=== PATIENT | female | born 1970 | race Caucasian/White ===

== ENCOUNTER 2019-05-15 09:47 | Day surgery (SDC) | payer OTHER ==
[~2019-05-15] VITALS: Ht 167.6 cm; Wt 69.4 kg
[2019-05-15] MEDS ORDERED: LACTATED RINGERS 1,000 ML IV SCH (10:01)
[2019-05-15 10:16] VITALS: BP 118/56
[2019-05-15] MEDS ORDERED: ESTR1TAB15 PO (10:24)
[2019-05-15] MEDS ORDERED: LEVO150T5 PO (10:24)
[2019-05-15 10:59] LABS: BASOPHILS # (AUTO) 0.03 x10^3/uL (0-0.1); BASOPHILS % (AUTO) 1 % (0-1); EOSINOPHILS # (AUTO) 0.16 x10^3/uL (0-0.4); EOSINOPHILS % (AUTO) 3 % (1-7); LYMPHOCYTES # (AUTO) 2.01 x10^3/uL (1-3.4); LYMPHOCYTES % (AUTO) 37 % (22-44); MD NO; MEAN CORPUSCULAR HEMOGLOBIN 35.7 pg (27.0-34.8); MEAN CORPUSCULAR VOLUME 105.1 fL (80-100); MEAN PLATELET VOLUME 9.3 fL (7.4-10.4); MONOCYTES # (AUTO) 0.44 x10^3/uL (0.2-0.8); MONOCYTES % (AUTO) 8 % (2-9); NEUTROPHILS # (AUTO) 2.85 x10^3/uL (1.8-6.8); NEUTROPHILS % (AUTO) 52 % (42-75); PLATELET COUNT 271 x10^3/uL (130-400); RED BLOOD COUNT 3.76 x10^6/uL (3.82-5.3); RED CELL DISTRIBUTION WIDTH 13.1 % (9.6-15.2)
[2019-05-15 11:07] LABS: ANION GAP 8 mmol/L (5-15); CALCIUM 8.7 mg/dL (8.5-10.1); CHLORIDE 109 mmol/L (98-107); CREATININE 0.81 mg/dL (0.55-1.02)
[2019-05-15 11:18] LABS: HCG UR SG 1.016 (1.003-1.030)
[2019-05-15] MEDS ORDERED: SCOPOLAMINE PATCH, 1.5MG PATCH.TD72 TD STA (11:18)
[2019-05-15] MEDS ORDERED: ACETAMINOPHEN 500 MG TABLET PO STA (11:18)
[2019-05-15] MEDS ORDERED: DIAZEPAM 5 MG TABLET PO STA (11:18)
[2019-05-15] MEDS ORDERED: SCOPOLAMINE PATCH, 1.5MG PATCH.TD72 TD ONE (11:19)
[2019-05-15] MEDS ORDERED: ACETAMINOPHEN 500 MG TABLET ONE (11:20)
[2019-05-15] MEDS ORDERED: DIAZEPAM 5 MG TABLET ONE (11:20)
[2019-05-15] MEDS ORDERED: FENTANYL PF 100 MCG/2ML ONE (11:32)
[2019-05-15] MEDS ORDERED: MIDAZOLAM 1 MG/ML, 2ML ONE (11:32)
[2019-05-15] MEDS ORDERED: PROPOFOL 100 ML ONE (11:35)
[2019-05-15] MEDS ORDERED: ONDANSETRON 2MG/ML, 2ML ONE (11:35)
[2019-05-15] MEDS ORDERED: DEXAMETHASONE 4 MG/ML, 1ML ONE (11:35)
[2019-05-15] MEDS ORDERED: PROPOFOL 10 MG/ML, 20ML ONE (11:35)
[2019-05-15] MEDS ORDERED: CEFAZOLIN 1,000 MG ONE (11:35)
[2019-05-15] MEDS ORDERED: SILVER NITRATE STICK TP ONE (11:40)
[2019-05-15] MEDS ORDERED: LORazepam 2 MG/ML, 1ML IVPush PRN (12:00)
[2019-05-15] MEDS ORDERED: ONDANSETRON ODT 8 MG PO PRN (12:00)
[2019-05-15] MEDS ORDERED: ONDANSETRON 2MG/ML, 2ML IV PRN (12:00)
[2019-05-15] MEDS ORDERED: HYDROmorphone 2 MG/ML, 1ML IVPush PRN (12:00)
[2019-05-15] MEDS ORDERED: PROMETHAZINE 25 MG SUPP PR PRN (12:00)
[2019-05-15] MEDS ORDERED: PROMETHAZINE 25 MG/ML, 1ML IV PRN (12:00)
[2019-05-15] MEDS ORDERED: OXYcodone 5 MG/5 ML ORAL.SOL UDC PO PRN (12:00)
[2019-05-15] MEDS ORDERED: FENTANYL PF 100 MCG/2ML IV PRN (12:00)
[2019-05-15] MEDS ORDERED: LIDOCAINE-MPF 2% ,5ML ONE (12:18)
[2019-05-15] MEDS ORDERED: KETOROLAC 30 MG/1 ML ONE (12:18)
== END 2019-05-15 15:05 | disposition home or self-care (01) ==
LOC: OUT 09:47
PROVIDERS: ATTEND Obstetrics & Gynecology Maternal & Fetal Medicine
DX: N92.0 Excessive and frequent menstruation with regular cycle (principal); N84.0 Polyp of corpus uteri; E03.9 Hypothyroidism, unspecified; Z88.8 Allergy status to other drugs, medicaments and biological substances
CPT/HCPCS: 36415; 58558; 80048; 81025; 85025; 88305; J0690; J1100; J1885; J2250; J2405; J2704; J3010; J7120